=== PATIENT | female | born 1965 | race Caucasian/White ===

== ENCOUNTER 2018-10-06 16:44 | Emergency (ER) | payer OTHER ==
[~2018-10-06] VITALS: Ht 165.1 cm; Wt 118.0 kg
[~2018-10-06 16:44] MED LIST: BENICAR; HYDROCHLOROTHIAZIDE
[2018-10-06 16:49] VITALS: BP 196/110
== END 2018-10-06 22:52 | disposition left against medical advice (07) ==
LOC: ER 18:35
DX: Z53.21 Procedure and treatment not carried out due to patient leaving prior to being seen by health care provider (principal)

== ENCOUNTER 2019-04-11 14:54 | Emergency (ER) | payer OTHER ==
[~2019-04-11] VITALS: Ht 165.1 cm; Wt 118.0 kg
[2019-04-11] MEDS ORDERED: KETOROLAC 15MG/ML VIAL IM ONE (17:00)
[2019-04-11 17:20] VITALS: BP 179/96
== END 2019-04-11 17:40 | disposition home or self-care (01) ==
LOC: ER 14:54
DX: M25.561 Pain in right knee (principal); N39.0 Urinary tract infection, site not specified; I10 Essential (primary) hypertension; Z90.49 Acquired absence of other specified parts of digestive tract; Z90.710 Acquired absence of both cervix and uterus
CPT/HCPCS: 96372; 99283; J1885; L1830

== ENCOUNTER 2019-12-31 10:02 | Emergency (ER) | payer OTHER ==
[~2019-12-31] VITALS: Ht 172.7 cm; Wt 120.0 kg
[2019-12-31] MEDS ORDERED: ASPIRIN 81MG TABLET PO ONE (12:30)
[2019-12-31] MEDS ORDERED: LORAZEPAM 1MG TABLET PO ONE (12:30)
[2019-12-31 13:25] LABS: BASOPHILS % 1.4 % (0.0-2.0); EOSINOPHILS % 0.3 % (0.0-5.0); HEMATOCRIT. 39.5 % (36.0-48.0); HEMOGLOBIN. 13.6 g/dL (12.0-16.0); LYMPHOCYTES % 34.5 % (20.0-50.0); MEAN CORPUSCULAR HEMOGLOBIN 31.5 pg (28.0-32.0); MEAN CORPUSCULAR VOLUME 91.6 fL (81.0-99.0); MONOCYTES % 7.5 % (2.0-8.0); NEUTROPHILS % 56.3 % (40.0-76.0); PLATELET 290 x1000/uL (130-400); RED BLOOD CELL COUNT 4.31 mill/uL (4.2-5.4); RED CELL DISTRIBUTION WIDTH 13.1 % (11.6-14.6)
[2019-12-31 13:37] LABS: CHLORIDE 109 mEq/L (98-107)
[2019-12-31 14:20] VITALS: BP 123/68
== END 2019-12-31 14:44 | disposition home or self-care (01) ==
LOC: ER 10:02
DX: R07.89 Other chest pain (principal); F41.9 Anxiety disorder, unspecified; I10 Essential (primary) hypertension; Z90.49 Acquired absence of other specified parts of digestive tract; Z90.710 Acquired absence of both cervix and uterus
CPT/HCPCS: 36415; 71045; 80053; 83880; 84484; 85025; 87804; 93005; 99284; Z7610